=== PATIENT | male | born 1995 | race Caucasian/White ===

== ENCOUNTER 2017-09-02 13:42 | Outpatient (CLI) | payer OTHER ==
[2017-09-02 14:22] LABS: Hematocrit 44.3 % (42.0-52.0); Red Blood Cell (RBC) Count 4.79 mill/uL (4.00-5.20); White Blood Cell (WBC) Count 5.2 thou/uL (4.8-10.8)
== END 2017-09-02 13:43 | disposition home or self-care (01) ==
LOC: LABBT 13:42
PROVIDERS: ATTEND Orthopaedic Surgery Hand Surgery
DX: Z01.812 Encounter for preprocedural laboratory examination (principal); S62.142A Displaced fracture of body of hamate [unciform] bone, left wrist, initial encounter for closed fracture
CPT/HCPCS: 85027

== ENCOUNTER 2017-09-04 12:24 | Day surgery (SDC) | payer OTHER ==
[2017-09-04] MEDS ORDERED: Bacitracin Zinc Ointment 30 gm TUBE ONE (13:55)
[2017-09-04] MEDS ORDERED: Bupivacaine PF 0.5% 30 ML VIAL ONE (13:55)
[2017-09-04] MEDS ORDERED: Betamet Acet/Betamet Na Ph 30 MG/5 ML VIAL ONE (13:55)
[2017-09-04] MEDS ORDERED: Fentanyl 100 MCG/2 ML VIAL ONE (14:13)
[2017-09-04] MEDS ORDERED: Midazolam HCl 2 mg/2 ml Vial ONE (14:22)
[2017-09-04] MEDS ORDERED: CEFAZOLIN/Water 2 GM/20 ML SYRINGE ONE (14:22)
[2017-09-04] MEDS ORDERED: Ondansetron HCl/PF 4 MG/2 ML Vial ONE (15:06)
[2017-09-04] MEDS ORDERED: ePHEDrine/0.9% NaCl/PF SYRINGE 50 mg/10 ml ONE (15:06)
[2017-09-04] MEDS ORDERED: Propofol 200 MG/20 ML VIAL ONE (15:06)
[2017-09-04] MEDS ORDERED: Ketorolac Tromethamine 30 MG/ML VIAL ONE ×2 (15:06→17:20)
[2017-09-04] MEDS ORDERED: Metoclopramide HCl 10 MG/2 ML VIAL ONE (15:06)
[2017-09-04] MEDS ORDERED: PHENYLEPHRINE-NS 100 MCG/ML 10 ML SYRINGE ONE (15:06)
[2017-09-04] MEDS ORDERED: Lidocaine 2% PF 10 ML AMP (For Epidural Use) ONE (15:06)
[2017-09-04] MEDS ORDERED: Dexamethasone 20 MG/5 ML VIAL ONE (15:06)
--- NOTE | 2017-09-04 19:37 | RAD ---
LEFT HAND INTRAOPERATIVE FLUOROSCOPY 09/04/17 HISTORY: Pain. Surgery. FINDINGS/IMPRESSION: Intraoperative fluoroscopy is provided for operative fixation as performed by Dr. Lindsay. Multiple spot fluoroscopic images show metallic spreaders and operative hardware to apply the wrist. POS: [id number]
--- NOTE | 2017-09-06 07:56 | OP ---
DATE OF PROCEDURE: 09/04/2017 PREOPERATIVE DIAGNOSES: 1. Nonunion hamate hook process fracture. 2. Ulnar nerve neuritis. 3. Possible median nerve neuritis. FINDINGS: Definite fracture fragment approximately 5 mm wide and 1 cm long that was loose and displaced and pus hed against the ulnar nerve. PROCEDURE PERFORMED: 1. Ulnar nerve neuroplasty. 2. Median nerve neuroplasty at the wrist. 3. Excision of nonunion, hamate fracture/hamate hook fracture. 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 Once we had inflated the tourniquet, achieved timeout, then we made a zigzag incision centered over t he ring finger at the palmar wrist, and we avoided actual tough pad at the hypothenar and thenar sariah on. We carried the incision through the skin and subcutaneous tissue and then, we found the ulnar ne rve and developed the ulnar nerve from just proximal to canal to the point where it passed the hamate hook. The ulnar nerve was free. Median nerve was also freed at the same time using neuroplas ty median nerve at the wrist. Then, we visualized a small fragment, 1.2, held C-arm portable fluoros copy which also provides over the area and confirmed that this indeed was the hamate hook. We then g ently from the ulnar nerve remnant, and there was no complication. Celestone was placed in the area where the nerve was pushed by the displaced fragment, the fascia was closed. Tourniquet deflated. Hemostasis obtained. There was no arterial bleeding of any type. We then clos ed the subcutaneous tissue with 4-0 Monocryl and then the skin was reapproximated with 4-0 nylon inte rrupted mattress pattern. Injection was given in the wound area and the patient left the opera ting room without evidence of anesthetic or operative complication.
== END 2017-09-04 18:20 | disposition home or self-care (01) ==
LOC: SDC 12:24
PROVIDERS: ATTEND Orthopaedic Surgery Hand Surgery
PROC: 01N50ZZ Release Median Nerve, Open Approach (ICD-10-PCS; principal; 2017-09-04)
PROC: 0PSN0ZZ Reposition Left Carpal, Open Approach (ICD-10-PCS; principal; 2017-09-04)
PROC: 01N40ZZ Release Ulnar Nerve, Open Approach (ICD-10-PCS; principal; 2017-09-04)
DX: S62.152 Displaced fracture of hook process of hamate [unciform] bone, left wrist (principal); G56.21 Lesion of ulnar nerve, right upper limb; Z98.890 Other specified postprocedural states
CPT/HCPCS: 76001; 88305; 88311; 96372; J0131; J0702; J1100; J1885; J2001; J2250; J2405; J2704; J2765; J3010; S0020